=== PATIENT | male | born 1975 | race Two or more races ===

== ENCOUNTER 2023-02-10 12:20 | Emergency (ER) | payer BC ==
[~2023-02-10] VITALS: Ht 182.9 cm; Wt 166.0 kg
[2023-02-10 12:54] LABS: EOSINOPHILS % 1.5 % (0.0-5.0); HEMATOCRIT. 46.9 % (42.0-52.0); HEMOGLOBIN. 16.4 g/dL (14.0-18.0); MEAN CORPUSCULAR HEMOGLOBIN 29.7 pg (28.0-32.0); MEAN CORPUSCULAR VOLUME 85.2 fL (80.0-94.0); MEAN PLATELET VOLUME 10.4 fl (7.4-10.4); MONOCYTES % 7.1 % (2.0-8.0); NEUTROPHILS % 75.4 % (40.0-76.0); PLATELET 202 x1000/uL (130-400); RED BLOOD CELL COUNT 5.51 mill/uL (4.7-6.1); RED CELL DISTRIBUTION WIDTH 14.2 % (11.6-14.6)
[2023-02-10 13:04] LABS: CHLORIDE 101 mEq/L (98-107)
[2023-02-10 13:29] LABS: INR 3.1; PROTHROMBIN TIME 31.5 sec (9.6-11.0)
[2023-02-10 15:00] VITALS: BP 140/76
[2023-02-10] MEDS ORDERED: TAMS-11 MT (15:00)
[2023-02-10] MEDS ORDERED: CIPR-264 PO (15:00)
== END 2023-02-10 16:15 | disposition home or self-care (01) ==
LOC: ER 12:20
DX: R33.9 Retention of urine, unspecified (principal); E11.65 Type 2 diabetes mellitus with hyperglycemia; I11.0 Hypertensive heart disease with heart failure; I50.9 Heart failure, unspecified; N28.9 Disorder of kidney and ureter, unspecified
CPT/HCPCS: 36415; 51702; 80053; 85025; 99284; A4315